=== PATIENT | male | born 1980 | race Caucasian/White ===

== ENCOUNTER 2021-10-24 07:02 | Emergency (ER) | payer MEDICAID ==
[~2021-10-24] VITALS: Ht 167.6 cm; Wt 66.0 kg
[2021-10-24] MEDS ORDERED: SODIUM CHLORIDE 0.9% 1,000 ML IV ONE (07:15)
[2021-10-24 07:56] LABS: BASOPHILS % 0.4 % (0.0-2.0); EOSINOPHILS % 0.2 % (0.0-5.0); HEMATOCRIT. 39.4 % (42.0-52.0); HEMOGLOBIN. 13.3 g/dL (14.0-18.0); LYMPHOCYTES % 13.8 % (20.0-50.0); MEAN CORPUSCULAR HEMOGLOBIN 32.8 pg (28.0-32.0); MEAN CORPUSCULAR VOLUME 96.8 fL (80.0-94.0); MEAN PLATELET VOLUME 8.2 fl (7.4-10.4); NEUTROPHILS % 79.6 % (40.0-76.0); PLATELET 377 x1000/uL (130-400); RED BLOOD CELL COUNT 4.07 mill/uL (4.7-6.1); RED CELL DISTRIBUTION WIDTH 13.8 % (11.6-14.6)
[2021-10-24 08:09] LABS: CHLORIDE 101 mEq/L (98-107)
[2021-10-24] MEDS ORDERED: CHLORDIAZEPOXIDE 25MG CAPSULE PO ONE (08:45)
[2021-10-24 09:27] VITALS: BP 130/83
== END 2021-10-24 09:32 | disposition home or self-care (01) ==
LOC: ER 07:02
DX: R04.0 Epistaxis (principal); R10.9 Unspecified abdominal pain; R03.0 Elevated blood-pressure reading, without diagnosis of hypertension; Y04.2XXA Assault by strike against or bumped into by another person, initial encounter; Y93.89 Activity, other specified; Y92.89 Other specified places as the place of occurrence of the external cause
CPT/HCPCS: 36415; 74176; 80053; 80320; 85025; 86850; 86900; 86901; 96360; 99284; J7030; G0480